=== PATIENT | male | born 1960 | race Caucasian/White ===

== ENCOUNTER → 2016-08-29 | Outpatient (CLI) | payer BC, OTHER | LOC: M WUC 09:17 | PROVIDERS: ATTEND Family Medicine | DX: E11.9 Type 2 diabetes mellitus without complications (principal) ==

== ENCOUNTER → 2016-11-27 | Outpatient (CLI) | payer BC, OTHER ==
--- NOTE | 2016-11-28 01:11 | REP ---
Clinical: COPD . Comparison: 07/02/2016 . Technique: PA and lateral. Findings: The mediastinum and cardiac silhouette are normal. The lung payan are clear and without acute consolidation, effusion, or pneumothorax. The skeletal structures are intact and normal. Impression: 1. No acute cardiopulmonary process. Signed by Jameson Avitia MD 11/28/2016 01:03 A
== END ==
LOC: M LAB 07:08
PROVIDERS: ATTEND Family Medicine
DX: J44.9 Chronic obstructive pulmonary disease, unspecified (principal)

== ENCOUNTER → 2017-03-20 | Outpatient (CLI) | payer BC, OTHER ==
--- NOTE | 2017-03-20 13:04 | REP ---
UNILATERAL LEFT RIBS, AP CHEST, FIVE VIEWS: HISTORY: Contusion. COMPARISON: 11/27/2016. The lungs are clear. The heart is normal in size. The pulmonary vasculature is normal in appearance. The bony structure is intact. IMPRESSION: No acute disease. Signed by Irineo Santiago MD 03/20/2017 01:26 P
== END ==
LOC: M WUC 11:14
PROVIDERS: ATTEND Physician Assistant
DX: S20.212A Contusion of left front wall of thorax, initial encounter (principal); X58.XXXA Exposure to other specified factors, initial encounter; Y92.9 Unspecified place or not applicable; Y93.9 Activity, unspecified; Y99.9 Unspecified external cause status

== ENCOUNTER → 2017-07-06 | Outpatient (CLI) | payer BC, OTHER ==
[2017-07-06 07:10] LABS: MEAN CORPUSCULAR HEMOGLOBIN 27.4 pg (27.0-33.0); MEAN CORPUSCULAR HGB CONC 32.9 g/dl (32.0-36.5); MEAN CORPUSCULAR VOLUME 83.3 fl (80.0-96.0); PLATELET COUNT, AUTOMATED 279 10^3/uL (150-450); RED CELL DISTRIBUTION WIDTH 13.5 % (11.5-14.5); WHITE BLOOD COUNT 6.2 10^3/uL (4.0-10.0)
[2017-07-06 07:41] LABS: ALBUMIN/GLOBULIN RATIO 1.18 (1.00-1.93); ALKALINE PHOSPHATASE 86 U/L (45-117); ALT/SGPT 30 U/L (12-78); ANION GAP 9 MEQ/L (8-16); AST/SGOT 18 U/L (7-37); BILIRUBIN,TOTAL 0.6 MG/DL (0.2-1.0); BLOOD UREA NITROGEN 9 MG/DL (7-18); CALCIUM LEVEL 8.8 MG/DL (8.5-10.1); CARBON DIOXIDE LEVEL 28 MEQ/L (21-32); CHLORIDE LEVEL 106 MEQ/L (98-107); CHOLESTEROL LEVEL 184 MG/DL (<200); CREATININE FOR GFR 0.98 MG/DL (0.70-1.30); GLOMERULAR FILTRATION RATE > 60.0 (>56); GLUCOSE, FASTING 99 MG/DL (70-105); SODIUM LEVEL 143 MEQ/L (136-145); TOTAL PROTEIN 7.4 GM/DL (6.4-8.2); TRIGLYCERIDES LEVEL 58 MG/DL (<150)
--- NOTE | 2017-07-06 07:49 | REP ---
PA and lateral chest: Comparison is 11/27/2016. The lung payan are clear. The cardiac size is normal The natalie, mediastinum, and bony thorax are unremarkable. Impression: Negative PA and lateral chest. There is no interval change. Signed by Luciano Rose MD 07/06/2017 07:40 A
--- NOTE | 2017-07-07 01:30 | ECGEPIP ---
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
== END ==
LOC: M LAB 06:07
PROVIDERS: ATTEND Family Medicine
DX: I10 Essential (primary) hypertension (principal)

== ENCOUNTER → 2017-12-11 | Outpatient (CLI) | payer BC, OTHER | LOC: M RAD 06:38 | DX: M54.5 Low back pain (principal) | CPT/HCPCS: 72072 ==

== ENCOUNTER → 2018-02-17 | Outpatient (CLI) | payer BC, OTHER ==
[2018-02-17 06:32] LABS: HEMATOCRIT 47.2 % (42.0-52.0); HEMOGLOBIN 15.9 g/dl (13.5-17.5); MEAN CORPUSCULAR HGB CONC 33.7 g/dl (32.0-36.5); MEAN CORPUSCULAR VOLUME 83.1 fl (80.0-96.0); PLATELET COUNT, AUTOMATED 260 10^3/uL (150-450); RED BLOOD COUNT 5.68 10^6/uL (4.30-6.10); RED CELL DISTRIBUTION WIDTH 13.7 % (11.5-14.5); WHITE BLOOD COUNT 6.9 10^3/uL (4.0-10.0)
[2018-02-17 06:49] LABS: ESTIMATED AVERAGE GLUCOSE 126 MG/DL (60-110)
[2018-02-17 07:07] LABS: ALBUMIN 3.8 GM/DL (3.2-5.2); ALBUMIN/GLOBULIN RATIO 1.12 (1.00-1.93); ALKALINE PHOSPHATASE 83 U/L (45-117); ALT/SGPT 33 U/L (12-78); ANION GAP 8 MEQ/L (8-16); AST/SGOT 19 U/L (7-37); BILIRUBIN,TOTAL 0.6 MG/DL (0.2-1.0); BLOOD UREA NITROGEN 14 MG/DL (7-18); CALCIUM LEVEL 8.4 MG/DL (8.5-10.1); CARBON DIOXIDE LEVEL 29 MEQ/L (21-32); CHLORIDE LEVEL 105 MEQ/L (98-107); CHOLESTEROL LEVEL 212 MG/DL (<200); CHOLESTEROL RISK RATIO 2.944 (<5); CREATININE FOR GFR 0.82 MG/DL (0.70-1.30); GLOMERULAR FILTRATION RATE > 60.0 (>56); GLUCOSE, FASTING 100 MG/DL (70-100); HDL CHOLESTEROL 72 MG/DL (>40); NON-HDL-C 140 MG/DL; POTASSIUM SERUM 3.9 MEQ/L (3.5-5.1); PROSTATIC SPECIFIC AG MONITOR 0.45 NG/ML (< 4.0); SODIUM LEVEL 142 MEQ/L (136-145); TOTAL PROTEIN 7.2 GM/DL (6.4-8.2); TRIGLYCERIDES LEVEL 125 MG/DL (<150)
[2018-02-17 11:49] LABS: TESTOSTERONE 428 NG/DL (241-827)
== END ==
LOC: M LAB 06:00
DX: I10 Essential (primary) hypertension (principal); E11.9 Type 2 diabetes mellitus without complications; R53.83 Other fatigue
CPT/HCPCS: 84403

== ENCOUNTER → 2019-05-16 | Outpatient (REF) | LOC: M LAB LCGH 15:10 | PROVIDERS: ATTEND Physician Assistant | DX: D48.5 Neoplasm of uncertain behavior of skin (principal) ==

== ENCOUNTER → 2019-10-07 | Outpatient (CLI) | payer BC, OTHER ==
--- NOTE | 2019-10-07 08:32 | REP ---
Lumbar spine five views: Comparison is 06/21/2008. Vertebral body heights and alignment are normal and unchanged. There are large bridging osteophytes anteriorly at every lumbar level with minimal intervertebral disc space narrowing. This is nonspecific and could represent diffuse idiopathic skeletal hypertrophy (DISH) or multilevel degenerative disc disease. The osteophytes have increased in size in the interval. There is no spondylolysis or spondylolisthesis. Mineralization is normal. The pedicles are unremarkable. The facet articulations are unremarkable. The sacroiliac articulations are unremarkable. There is mild scoliosis convex left, unchanged. Impression: Diffuse idiopathic skeletal hyperostosis versus multilevel degenerative disc disease versus combination. This has progressed. Mild scoliosis convex left. Electronically Signed by Luciano Rose MD 10/07/2019 08:24 A
== END ==
LOC: M RAD 06:02
PROVIDERS: ATTEND Family Medicine
DX: M54.30 Sciatica, unspecified side (principal); M41.9 Scoliosis, unspecified

== ENCOUNTER 2020-05-27 10:34 | Emergency (ER) | payer BC, OTHER ==
[~2020-05-27] VITALS: Ht 177.8 cm; Wt 121.0 kg
[2020-05-27] MEDS ORDERED: TRIA37.53 (10:41)
[2020-05-27] MEDS ORDERED: SIMV20TA22 (10:41)
[2020-05-27] MEDS ORDERED: NS 500 ML IV ONE ×2 (11:30→13:15)
[2020-05-27 11:32] LABS: BASO % 0.3 % (0.0-1.0); EOS % 0.6 % (0.0-3.0); HEMATOCRIT 48.7 % (42.0-52.0); LYMPH # 1.3 10^3/uL (1.5-5.0); LYMPH % 20.4 % (24.0-44.0); MEAN CORPUSCULAR HEMOGLOBIN 27.2 pg (27.0-33.0); MEAN CORPUSCULAR HGB CONC 32.9 g/dl (32.0-36.5); MEAN CORPUSCULAR VOLUME 82.7 fl (80.0-96.0); MONO # 0.8 10^3/uL (0.0-0.8); NEUTROPHILS % 65.4 % (36.0-66.0); PLATELET COUNT, AUTOMATED 265 10^3/uL (150-450); RED BLOOD COUNT 5.89 10^6/uL (4.30-6.10); WHITE BLOOD COUNT 6.2 10^3/uL (4.0-10.0)
--- NOTE | 2020-05-27 11:45 | REP ---
INDICATION: orthostasis. COMPARISON: 12/15/2018 TECHNIQUE: AP portable seated chest FINDINGS: The lung payan are well inflated. There is no effusion, infiltrate, atelectasis or mass. Some minor lateral pleural thickening or subpleural fat seen along the left lung base. The heart is not enlarged. There is no vascular redistribution or pulmonary edema. The airway and aortic contour were unremarkable. There is no widening of the mediastinum. Marginal osteophytes are seen throughout the thoracic spine with some gentle dextroconvex curve centered in the midthoracic region. Minor degenerative changes at the AC joints. IMPRESSION: 1. Some minor age-related changes but no acute cardiopulmonary disease. <Electronically signed by Tommie Bledsoe > 05/27/20 [id number]
[2020-05-27 11:48] LABS: ALBUMIN 4.2 GM/DL (3.2-5.2); ALT/SGPT 29 U/L (12-78); BILIRUBIN,DIRECT 0.2 MG/DL (0.0-0.2); BILIRUBIN,TOTAL 0.7 MG/DL (0.2-1.0); CK-MB VALUE MASS 1.6 NG/ML (<3.6); CPK CREATINE PHOSPHOKINASE 150 U/L (39-308); MAGNESIUM LEVEL 2.2 MG/DL (1.8-2.4); MB/CK RELATIVE INDEX 1.07 (< OR =4); NT-PRO BNP 17 PG/ML (<125); TOTAL PROTEIN 7.5 GM/DL (6.4-8.2); TROPONIN I < 0.02 NG/ML (< 0.10)
[2020-05-27] MEDS ORDERED: POTASSIUM CHLORIDE 10 MEQ SR TABLET PO ONE (12:45)
[2020-05-27 14:45] VITALS: BP 137/66
[2020-05-27 14:51] LABS: CK-MB VALUE MASS 1.6 NG/ML (<3.6); CPK CREATINE PHOSPHOKINASE 135 U/L (39-308); MB/CK RELATIVE INDEX 1.19 (< OR =4); TROPONIN I < 0.02 NG/ML (< 0.10)
--- NOTE | 2020-05-28 07:47 | ECGEPIP ---
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
--- NOTE | 2020-05-28 07:51 | ECGEPIP ---
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
== END 2020-05-27 15:17 | disposition home or self-care (01) ==
LOC: M ED 10:34
DX: I49.3 Ventricular premature depolarization (principal); E87.6 Hypokalemia; I10 Essential (primary) hypertension; E78.5 Hyperlipidemia, unspecified; G47.33 Obstructive sleep apnea (adult) (pediatric); Z79.899 Other long term (current) drug therapy

== ENCOUNTER → 2020-05-29 | Outpatient (CLI) | payer BC, OTHER ==
[~2020-05-29] MED LIST: SIMV20TA22; TRIA37.53
[2020-05-29 06:51] LABS: HEMOGLOBIN 15.5 g/dl (13.5-17.5); PLATELET COUNT, AUTOMATED 272 10^3/uL (150-450); RED BLOOD COUNT 5.53 10^6/uL (4.30-6.10)
[2020-05-29 07:14] LABS: HEMOGLOBIN A1c 5.8 %
[2020-05-29 07:20] LABS: ALT/SGPT 28 U/L (12-78); BILIRUBIN,TOTAL 0.8 MG/DL (0.2-1.0); BLOOD UREA NITROGEN 11 MG/DL (7-18); CALCIUM LEVEL 8.8 MG/DL (8.8-10.2); CARBON DIOXIDE LEVEL 30 MEQ/L (21-32); CHLORIDE LEVEL 105 MEQ/L (98-107); CHOLESTEROL LEVEL 182 MG/DL (<200); CHOLESTEROL RISK RATIO 2.935 (<5); GLOMERULAR FILTRATION RATE > 60.0 (>49); GLUCOSE, FASTING 93 MG/DL (70-100); HDL CHOLESTEROL 62 MG/DL (>40); LDL CHOLESTEROL 100 MG/DL (<100); MAGNESIUM LEVEL 2.2 MG/DL (1.8-2.4); NON-HDL-C 120 MG/DL; POTASSIUM SERUM 3.8 MEQ/L (3.5-5.1); PROSTATIC SPECIFIC AG MONITOR 0.51 NG/ML (< 4.00); SODIUM LEVEL 140 MEQ/L (136-145); TRIGLYCERIDES LEVEL 101 MG/DL (<150)
[2020-05-29 09:51] LABS: TOTAL 25(OH) VITAMIN D 31.1 NG/ML (30.0-100.0)
[2020-05-29 09:52] LABS: TESTOSTERONE 503 NG/DL (241-827)
== END ==
LOC: M LAB 05:59
PROVIDERS: ATTEND Family Medicine
DX: E03.9 Hypothyroidism, unspecified (principal); I10 Essential (primary) hypertension; R53.83 Other fatigue

== ENCOUNTER → 2021-05-15 | Outpatient (CLI) | payer BC, OTHER ==
--- NOTE | 2021-05-15 07:27 | ECGEPIP ---
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
[2021-05-15 07:33] LABS: HEMATOCRIT 44.9 % (42.0-52.0); MEAN CORPUSCULAR HEMOGLOBIN 28.2 pg (27.0-33.0); MEAN CORPUSCULAR HGB CONC 33.4 g/dl (32.0-36.5); MEAN CORPUSCULAR VOLUME 84.4 fl (80.0-96.0); PLATELET COUNT, AUTOMATED 244 10^3/uL (150-450); RED BLOOD COUNT 5.32 10^6/uL (4.30-6.10); WHITE BLOOD COUNT 6.6 10^3/uL (4.0-10.0)
[2021-05-15 08:03] LABS: ALBUMIN 3.6 GM/DL (3.2-5.2); ALT/SGPT 28 U/L (12-78); BILIRUBIN,TOTAL 0.7 MG/DL (0.2-1.0); BLOOD UREA NITROGEN 9 MG/DL (7-18); CALCIUM LEVEL 8.8 MG/DL (8.8-10.2); CARBON DIOXIDE LEVEL 29 MEQ/L (21-32); CHLORIDE LEVEL 106 MEQ/L (98-107); CHOLESTEROL LEVEL 242 MG/DL (<200); CHOLESTEROL RISK RATIO 3.967 (<5); CREATININE FOR GFR 0.82 MG/DL (0.70-1.30); GLOMERULAR FILTRATION RATE > 60.0 (>49); GLUCOSE, FASTING 94 MG/DL (70-100); HDL CHOLESTEROL 61 MG/DL (>40); LDL CHOLESTEROL 149 MG/DL (<100); NON-HDL-C 181 MG/DL; POTASSIUM SERUM 4.3 MEQ/L (3.5-5.1); PROSTATIC SPECIFIC AG MONITOR 0.45 NG/ML (< 4.00); SODIUM LEVEL 140 MEQ/L (136-145); TOTAL PROTEIN 6.9 GM/DL (6.4-8.2); TRIGLYCERIDES LEVEL 160 MG/DL (<150)
--- NOTE | 2021-05-15 08:28 | REP ---
INDICATION: HTN,FATIGUE, HYPOTHYROID COMPARISON: 12/15/2018 TECHNIQUE: PA and lateral. FINDINGS: The mediastinum and cardiac silhouette are normal. The lung payan are clear and without acute consolidation, effusion, or pneumothorax. The skeletal structures are intact and normal. IMPRESSION: No acute cardiopulmonary process. <Electronically signed by Jameson Avitia > 05/15/21 [id number]
[2021-05-15 09:37] LABS: TESTOSTERONE 594 NG/DL (241-827)
[2021-05-15 09:38] LABS: HEMOGLOBIN A1c 5.5 %
== END ==
LOC: M LAB 06:17
PROVIDERS: ATTEND Family Medicine
DX: I10 Essential (primary) hypertension (principal); R53.83 Other fatigue; E03.9 Hypothyroidism, unspecified

== ENCOUNTER → 2021-07-12 | Outpatient (CLI) | payer BC, OTHER | LOC: M RAD 06:06 | PROVIDERS: ATTEND Family Medicine | DX: M47.816 Spondylosis without myelopathy or radiculopathy, lumbar region (principal); M47.814 Spondylosis without myelopathy or radiculopathy, thoracic region ==

== ENCOUNTER → 2021-07-25 | Outpatient (CLI) | payer BC, OTHER ==
[~2021-07-25] MED LIST changes: +GASTROGRAFIN SOLUTION 30ML (Q9963) As Ordered ONE; +ISOVUE-370 76% 100ML VIAL As Ordered ONE
--- NOTE | 2021-07-25 14:15 | REP ---
INDICATION: RUQ PAIN AND LLQ MASS. COMPARISON: None TECHNIQUE: Axial contrast-enhanced images from the lung bases to the pubic symphysis using oral and 100 cc Isovue 370 intravenous contrast material. Coronal and sagittal reformations obtained along with delayed images of the abdomen. This CT examination was performed using the following dose reduction techniques: Automated exposure control, adjustment of mA and/or kv according to the patient's size, and the use of iterative reconstruction technique. FINDINGS: Liver, spleen, pancreas, gallbladder, bilateral adrenal glands and kidneys are normal. 1.5 cm simple left renal cyst identified. There are moderately prominent lymph nodes in the upper abdomen/peripancreatic and retroperitoneal/para-aortic distribution measuring up to 17 mm and are nonspecific but may warrant further investigation. The enteric system including stomach, small, and large bowel appears normal. No evidence for obstruction or acute inflammatory process. Normal terminal ileum and appendix are identified in the right lower quadrant. Diverticulosis noted without acute diverticulitis. Pelvis demonstrates normal bladder and age-appropriate prostate/seminal vesicles. No ascites. No free air. Abdominal aorta and vasculature appear normal. Musculoskeletal structures are intact and without acute osseous abnormality. Lung bases are clear. IMPRESSION: 1. Moderately prominent upper abdominal/peripancreatic and periaortic retroperitoneal lymph nodes up to 17 mm. Findings are nonspecific but may warrant further investigation. 2. Left renal cyst. 3. Diverticulosis without acute diverticulitis. <Electronically signed by Jameson Avitia > 07/25/21 [id number]
== END ==
LOC: M RAD 11:21
PROVIDERS: ATTEND Family Medicine
DX: R59.0 Localized enlarged lymph nodes (principal); K57.90 Diverticulosis of intestine, part unspecified, without perforation or abscess without bleeding; N28.1 Cyst of kidney, acquired; R10.32 Left lower quadrant pain; R10.11 Right upper quadrant pain
CPT/HCPCS: 74177; Q9963; Q9967

== ENCOUNTER → 2021-10-16 | Outpatient (CLI) | payer BC, OTHER ==
[~2021-10-16] MED LIST changes: -GASTROGRAFIN SOLUTION 30ML (Q9963) As Ordered ONE; -ISOVUE-370 76% 100ML VIAL As Ordered ONE
[2021-10-16 07:20] LABS: HEMATOCRIT 46.3 % (42.0-52.0); HEMOGLOBIN 15.5 g/dl (13.5-17.5); MEAN CORPUSCULAR HEMOGLOBIN 27.8 pg (27.0-33.0); MEAN CORPUSCULAR HGB CONC 33.5 g/dl (32.0-36.5); MEAN CORPUSCULAR VOLUME 83.1 fl (80.0-96.0); PLATELET COUNT, AUTOMATED 240 10^3/uL (150-450); RED BLOOD COUNT 5.57 10^6/uL (4.30-6.10); WHITE BLOOD COUNT 6.2 10^3/uL (4.0-10.0)
[2021-10-16 07:55] LABS: ALT/SGPT 29 U/L (12-78); BILIRUBIN,TOTAL 0.8 MG/DL (0.2-1.0); BLOOD UREA NITROGEN 14 MG/DL (7-18); CALCIUM LEVEL 8.6 MG/DL (8.8-10.2); CARBON DIOXIDE LEVEL 30 MEQ/L (21-32); CHLORIDE LEVEL 103 MEQ/L (98-107); CHOLESTEROL LEVEL 187 MG/DL (<200); CREATININE FOR GFR 0.77 MG/DL (0.70-1.30); GLOMERULAR FILTRATION RATE > 60.0 (>49); GLUCOSE, FASTING 100 MG/DL (70-100); HDL CHOLESTEROL 65 MG/DL (>40); POTASSIUM SERUM 3.7 MEQ/L (3.5-5.1); SODIUM LEVEL 139 MEQ/L (136-145); TRIGLYCERIDES LEVEL 129 MG/DL (<150)
[2021-10-16 07:56] LABS: ALBUMIN 3.9 GM/DL (3.2-5.2); CHOLESTEROL RISK RATIO 2.876 (<5); LDL CHOLESTEROL 96 MG/DL (<100); MAGNESIUM LEVEL 2.4 MG/DL (1.8-2.4); NON-HDL-C 122 MG/DL; TOTAL PROTEIN 6.9 GM/DL (6.4-8.2)
== END ==
LOC: M LAB 06:04
PROVIDERS: ATTEND Physician Assistant
DX: E78.00 Pure hypercholesterolemia, unspecified (principal); I10 Essential (primary) hypertension

== ENCOUNTER → 2021-12-12 | Outpatient (CLI) | payer BC, OTHER ==
[~2021-12-12] MED LIST changes: -TRIA37.53; +TRIA37.577
== END ==
LOC: M SLEEP 20:00
PROVIDERS: ATTEND Nurse Practitioner Adult Health
DX: G47.33 Obstructive sleep apnea (adult) (pediatric) (principal)

== ENCOUNTER 2022-01-08 19:09 | Emergency (ER) | payer BC, OTHER ==
[~2022-01-08] VITALS: Ht 177.8 cm; Wt 122.0 kg
[2022-01-09 00:41] VITALS: BP 132/78
== END 2022-01-09 00:43 | disposition home or self-care (01) ==
LOC: M ED 19:09
DX: S82.401A Unspecified fracture of shaft of right fibula, initial encounter for closed fracture (principal); S80.11XA Contusion of right lower leg, initial encounter; S90.31XA Contusion of right foot, initial encounter; M79.661 Pain in right lower leg; X58.XXXA Exposure to other specified factors, initial encounter; I10 Essential (primary) hypertension; E78.5 Hyperlipidemia, unspecified; Z79.899 Other long term (current) drug therapy

== ENCOUNTER → 2022-07-04 | Outpatient (REF) | payer BC, OTHER | LOC: M LAB REF 16:23 | PROVIDERS: ATTEND Internal Medicine | DX: R59.0 Localized enlarged lymph nodes (principal) ==

== ENCOUNTER → 2022-07-09 | Outpatient (CLI) | payer BC, OTHER | LOC: M WUC 08:02 | PROVIDERS: ATTEND Internal Medicine | DX: M25.512 Pain in left shoulder (principal) ==

== ENCOUNTER → 2022-07-10 | Outpatient (CLI) | payer BC, OTHER | LOC: M WHC 07:29 | PROVIDERS: ATTEND Internal Medicine | DX: M81.0 Age-related osteoporosis without current pathological fracture (principal) ==

== ENCOUNTER → 2022-11-13 | Outpatient (REF) | payer BC, OTHER | LOC: M SFHCDERM 14:12 | PROVIDERS: ATTEND Physician Assistant | DX: L85.9 Epidermal thickening, unspecified (principal) ==

== ENCOUNTER → 2022-11-17 | Outpatient (CLI) | payer BC, OTHER ==
[~2022-11-17] MED LIST changes: +ISOVUE-370 76% 100ML VIAL As Ordered ONE
== END ==
LOC: M RAD 09:42
PROVIDERS: ATTEND Internal Medicine
DX: R59.0 Localized enlarged lymph nodes (principal); N28.1 Cyst of kidney, acquired; M25.78 Osteophyte, vertebrae; K40.90 Unilateral inguinal hernia, without obstruction or gangrene, not specified as recurrent
CPT/HCPCS: 74177; Q9967

== ENCOUNTER → 2022-12-19 | Outpatient (REF) | payer OTHER ==
[~2022-12-19] MED LIST changes: -ISOVUE-370 76% 100ML VIAL As Ordered ONE
[2022-12-19 17:31] LABS: LDH LACTATE DEHYDROGENASE 199 U/L (120-246)
[2022-12-19 17:34] LABS: CARCINOEMBRYONIC ANTIGEN < 2.0 NG/ML (<2.5)
[2022-12-19 17:49] LABS: CA19-9 TUMOR MARKER,CARBOHYDRA 73.9 U/ML (<35.0)
== END ==
LOC: M LAB REF 16:26
PROVIDERS: ATTEND Internal Medicine
DX: D20.0 Benign neoplasm of soft tissue of retroperitoneum (principal)

== ENCOUNTER → 2022-12-30 | Outpatient (POV) | payer OTHER | LOC: M IRPOV 07:37 | PROVIDERS: ATTEND Radiology Diagnostic Radiology | DX: Z53.9 Procedure and treatment not carried out, unspecified reason (principal) ==

== ENCOUNTER → 2023-01-19 | Outpatient (CLI) | payer BC, OTHER ==
[~2023-01-19] MED LIST changes: +LIDOCAINE 1% MDV 20ML VIAL As Ordered ONE
[2023-01-19 08:25] VITALS: TEMP 98.9
[2023-01-19 11:30] VITALS: BP 119/92; O2SAT 95
== END ==
LOC: M IRPRO 07:56
PROVIDERS: ATTEND Internal Medicine
DX: R59.0 Localized enlarged lymph nodes (principal); D48.3 Neoplasm of uncertain behavior of retroperitoneum

== ENCOUNTER → 2023-01-20 | Outpatient (REF) | payer BC, OTHER ==
[~2023-01-20] MED LIST changes: -LIDOCAINE 1% MDV 20ML VIAL As Ordered ONE
[2023-01-20 15:28] LABS: CA19-9 TUMOR MARKER,CARBOHYDRA 25.2 U/ML (<35.0)
[2023-01-20 17:03] LABS: IMMUNOGLOBULIN A 299.7 MG/DL (40-350)
== END ==
LOC: M LAB REF 12:10
PROVIDERS: ATTEND Internal Medicine
DX: Z68.20 Body mass index [BMI] 20.0-20.9, adult (principal); N50.812 Left testicular pain; R97.8 Other abnormal tumor markers; R10.13 Epigastric pain

== ENCOUNTER → 2023-01-22 | Outpatient (CLI) | payer BC, OTHER | LOC: M RAD 07:55 | PROVIDERS: ATTEND Internal Medicine | DX: N50.89 Other specified disorders of the male genital organs (principal); N50.812 Left testicular pain ==

== ENCOUNTER → 2023-07-08 | Outpatient (REF) | payer BC, OTHER | LOC: M SFHCDERM 14:43 | PROVIDERS: ATTEND Physician Assistant | DX: D49.2 Neoplasm of unspecified behavior of bone, soft tissue, and skin (principal) ==

== ENCOUNTER → 2024-07-12 | Outpatient (CLI) | payer MEDICARE, BC ==
[2024-07-12 07:44] LABS: BASO % 0.4 % (0.0-1.0); EOS # 0.2 10^3/uL (0.0-0.5); EOS % 2.5 % (0.0-3.0); HEMATOCRIT 44.4 % (42.0-52.0); HEMOGLOBIN 14.8 g/dl (13.5-17.5); LYMPH # 1.8 10^3/uL (1.5-5.0); LYMPH % 25.9 % (24.0-44.0); MEAN CORPUSCULAR HEMOGLOBIN 28.3 pg (27.0-33.0); MEAN CORPUSCULAR HGB CONC 33.3 g/dl (32.0-36.5); MEAN CORPUSCULAR VOLUME 84.9 fl (80.0-96.0); MONO # 0.9 10^3/uL (0.0-0.8); MONO % 12.1 % (2.0-8.0); NEUTROPHILS # 4.2 10^3/uL (1.5-8.5); NEUTROPHILS % 58.8 % (36.0-66.0); PLATELET COUNT, AUTOMATED 216 10^3/uL (150-450); RED BLOOD COUNT 5.23 10^6/uL (4.30-6.10); WHITE BLOOD COUNT 7.1 10^3/uL (4.0-10.0)
[2024-07-12 08:08] LABS: URIC ACID 7.7 MG/DL (3.7-9.2)
[2024-07-12 08:10] LABS: LDH LACTATE DEHYDROGENASE 169 U/L (120-246)
[2024-07-12 08:12] LABS: ALBUMIN 3.8 G/DL (3.2-5.2); ALKALINE PHOSPHATASE 84 U/L (40-129); ALT/SGPT 24 U/L (7.0-40); AST/SGOT 16 U/L (<34); BILIRUBIN,TOTAL 1.1 MG/DL (0.3-1.2); BLOOD UREA NITROGEN 11 MG/DL (9-23); CALCIUM LEVEL 9.3 MG/DL (8.3-10.6); CARBON DIOXIDE LEVEL 29 MMOL/L (20-31); CHLORIDE LEVEL 105 MMOL/L (98-107); CREATININE FOR GFR 0.78 MG/DL (0.70-1.30); GLOMERULAR FILTRATION RATE > 60.0 (>49); GLUCOSE, FASTING 101 MG/DL (74-106); POTASSIUM SERUM 4.4 MMOL/L (3.5-5.1); SODIUM LEVEL 140 MMOL/L (136-145); TOTAL PROTEIN 7.1 G/DL (5.7-8.2)
== END ==
LOC: M LAB 06:06
PROVIDERS: ATTEND Physician Assistant
DX: Z01.812 Encounter for preprocedural laboratory examination (principal); Z79.899 Other long term (current) drug therapy

== ENCOUNTER → 2024-11-01 | Outpatient (REF) | payer MEDICARE, OTHER ==
[2024-11-01 12:43] LABS: APPEARANCE, URINE CLEAR (CLEAR); BACTERIA, URINE AUTO NEGATIVE (NEGATIVE); BILIRUBIN, URINE AUTO NEGATIVE (NEGATIVE); BLOOD, URINE BLOOD NEGATIVE (NEGATIVE); COLOR, URINE YELLOW (YELLOW); GLUCOSE, URINE (UA) AUTO NEGATIVE (NEGATIVE); KETONE, URINE AUTO NEGATIVE (NEGATIVE); LEUKOCYTE ESTERASE, URINE AUTO NEGATIVE (NEGATIVE); NITRITE, URINE AUTO NEGATIVE (NEGATIVE); PROTEIN, URINE AUTO NEGATIVE (NEGATIVE); RBC, URINE AUTO 1 /HPF (0-3); SPECIFIC GRAVITY URINE AUTO 1.015 (1.002-1.035); SQUAMOUS EPITHELIAL CELL UR AU 0 /HPF (0-6); WBC, URINE AUTO 0 /HPF (0-3)
== END ==
LOC: M LAB REF 12:10
PROVIDERS: ATTEND Internal Medicine
DX: Z01.818 Encounter for other preprocedural examination (principal)

== ENCOUNTER → 2024-11-24 | Outpatient (REF) | payer MEDICARE, OTHER, BC | LOC: M SFHCDERM 17:59 | PROVIDERS: ATTEND Physician Assistant | DX: D48.9 Neoplasm of uncertain behavior, unspecified (principal); C44.219 Basal cell carcinoma of skin of left ear and external auricular canal ==